=== PATIENT | female | born 1955 | race Caucasian/White ===

== ENCOUNTER 2022-01-28 20:49 | Emergency (ER) | payer BC, SELFPAY ==
[2022-01-28] VITALS (7 sets, daily range): BP systolic 108–162; BP diastolic 56–80; PULSE 70–83; RESP 18–28; TEMP 36.6; O2SAT 94–98; BMI 22.5
[2022-01-28] MEDS: diphenhydrAMINE 50 MG/ML inj 25 MG IVP (21:10)
[2022-01-28] MEDS: METHYLPREDNISOLONE SOD SUCC 62.5 MG/ML (125) 125 MG IVP (21:11)
--- NOTE | 2022-01-28 21:26 | ED.ALLEREA ---
HPI - Allergic Reaction General Chief complaint: Allergic Reaction Stated complaint: Hornet stings, allergic Time Seen by Provider: 01/28/22 21:00 History of Present Illness HPI narrative: This 66-year-old female comes in with concerns about an allergic reaction. Approximately 15-20 minutes prior to arrival she was stung by several ground bees. She states that she does have a history of reaction to bee stings. She arrives with a fair amount of anxiety in this regard. She did administer an EpiPen prior to arrival. She states that she feels like her throat is swelling but is showing no sign of angioedema or erythema. Related Data Home Medications Medication Instructions Recorded Confirmed No Known Home Medications 01/28/22 01/28/22 Allergies Allergy/AdvReac Type Severity Reaction Status Date / Time hornet venom Allergy Severe Anaphylaxis Verified 01/28/22 21:03 venom-wasp Allergy Severe Anaphylaxis Verified 01/28/22 21:03 acetaminophen [From Vicodin] Allergy Unknown Verified 01/28/22 21:05 hydrocodone [From Vicodin] Allergy Unknown Verified 01/28/22 21:05 Review of Systems Status of ROS Reports: 10 or more systems reviewed and unremarkable except as noted in History and below Narrative Constitutional: No fevers, no weight gain or loss. Eyes: No discharge. No vision changes. HENT: No congestion, no sore throat, no ear pain. Cardiovascular: No chest pain, no palpitations. Respiratory: No shortness of breath, no wheezes, no cough. Gastrointestinal: No abdominal pain, no vomiting, no diarrhea. Genitourinary: No dysuria, no hematuria. Musculoskeletal: Normal range of motion. Skin: Several areas of irritation from recent bee stings. Neurological: No dizziness, weakness, sensory change, speech change. Endo/Heme/Allergies: No bruising or bleeding. No polydipsia. Pysch: no suicidality, no anxiety, no insomnia. All other systems reviewed and are negative. PFSH PFSH Social History Smoking Status: Never smoker Do you use any of these nicotine containing products: None Second hand tobacco smoke exposure: No How often do you have a drink containing alcohol: 4 or more times a week How many standard drinks containing alcohol do you have on a typical day: 1 or 2 How often do you have six or more drinks on one occasion: Never AUDIT-C Alcohol total score: 4 Non-prescribed substance use: denies use service: No Exam Narrative: Exam Narrative: Constitutional: Well-developed, well-nourished, no acute distress. HEENT: Normocephalic, atraumatic. Oropharynx appears normal. No sign of angioedema. Neck: Normal range of motion. Nontender. Supple. Heart: Regular. No murmurs. Normal rate. Intact distal pulses. Lungs: Clear to auscultation. No chest discomfort. No wheezes, rhonchi, or rales. Abdomen: Normal bowel sounds. Nontender. No rebound tenderness. Genitalia: Deferred. Back: No midline tenderness. Normal range of motion. Extremities: Normal range of motion. Several localized areas of bee sting with small amount of surrounding erythema. These are in her lower extremities and on her feet. Skin: Intact. No rash. Warm. No erythema or pallor. Neurologic: No altered sensation. No weakness. Alert and oriented. Psychiatric: No suicidality. No anxiety or depression. No insomnia. Nursing notes and vitals signs are reviewed. Const: Vital Signs, click to edit/add: Vital Signs - 24 hr 01/28/22 20:58 01/28/22 21:20 01/28/22 21:12 Temperature 97.9 F Pulse Rate [Pulse Oximeter] 83 77 81 Respiratory Rate 28 H 20 18 Blood Pressure [Ri ght Upper Arm] 162/80 H 128/70 130/56 L Pulse Oximetry 98 98 98 Oxygen Delivery Me thod Room Air Room Air Room Air Course Vital Signs Vital signs: Initial Vital Signs Temperature 97.9 F 01/28/22 20:58 Temperature Source Temporal Artery Scan 01/28/22 20:58 Pulse Rate 83 01/28/22 20:58 Respiratory Rate 28 H 01/28/22 20:58 Blood Pressure 162/80 H 01/28/22 20:58 Blood Pressure Mean 107 01/28/22 20:58 Blood Pressure Position Supine 01/28/22 20:58 Pulse Oximetry 98 01/28/22 20:58 Oxygen Delivery Method 01/28/22 20:58 Vital Signs Temperature 97.9 F 01/28/22 20:58 Pulse Rate 83 01/28/22 20:58 Respiratory Rate 28 H 01/28/22 20:58 Blood Pressure 162/80 H 01/28/22 20:58 Pulse Oximetry 98 01/28/22 20:58 Oxygen Delivery Method 01/28/22 20:58 Temperature 97.9 F 01/28/22 20:58 Pulse Rate 77 01/28/22 21:20 Respiratory Rate 20 01/28/22 21:20 Blood Pressure 128/70 01/28/22 21:20 Pulse Oximetry 98 01/28/22 21:20 Oxygen Delivery Method 01/28/22 21:20 MDM - Allergic Reaction MDM Narrative Medical decision making narrative: This patient comes in with concern about a hypersensitivity reaction to bee stings. He has occurred about 20 minutes prior to arrival. She does arrive with normal vital signs and is breathing normally. There is no sign of angioedema. An IV was established where she received 125 mg of Solu-Medrol and 25 mg of Benadryl. Patient did give an EpiPen injection prior to arrival. She is rather anxious about these circumstances but declined any anxiolytics medication. She has continued to be observed here and is showing no signs of worsening symptoms. After a couple hours she shows signs of improvement and is not having any generalized symptoms. She does have some burning sensation in the localized areas where she was stung by these ground bees. Discharge Plan Discharge Clinical Impression: Allergic reaction Patient Disposition: Home, Self-Care Condition: Improved Instructions: General Allergic Reaction (ED) Additional Instructions: Follow up with MD as needed. Return if worsening symptoms occur. Prescriptions: No Action No Known Home Medications Follow Up/Referrals: Nava Hinds PA-C [Primary Care Provider] - Stand Alone Forms: [employer] - Biomolecular Determination Info Instructions
== END 2022-01-28 22:52 | disposition home or self-care (01) ==
PROVIDERS: Emergency Provider Emergency Medicine Emergency Medical Services; PCP Physician Assistant Medical
DX: T63.441A Toxic effect of venom of bees, accidental (unintentional), initial encounter (principal); Z91.030 Bee allergy status
CPT/HCPCS: 96374; 96375; 99283; 99284; J1200; J2930